=== PATIENT | male | born 2000 ===

== ENCOUNTER 2022-07-19 21:27 | Emergency (ER) | payer BC, OTHER ==
[2022-07-19] MEDS ORDERED: Benzocaine 20% Topical Spray UD MUCMEM ONE (21:30)
[2022-07-19] MEDS ORDERED: Lidocaine 2% Viscous Solution 15 ML UD PO ONE (21:30)
[2022-07-19] MEDS ORDERED: Acetaminophen/HYDROcodone 325-5 MG Tab PO ONE (21:41)
[2022-07-19] MEDS ORDERED: Penicillin V Potassium 500 MG Tab PO STA (21:41)
== END 2022-07-19 22:00 | disposition home or self-care (01) ==
LOC: MW.ED 21:27
DX: K01.1 Impacted teeth (principal)
CPT/HCPCS: 99282; A9270; 99283